=== PATIENT | male | born 1975 | race Hispanic/Latino ===

== ENCOUNTER 2019-11-11 14:55 | Emergency (ER) | payer MEDICARE ==
[2019-11-11 15:30] VITALS: BP 127/78
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
== END 2019-11-11 18:10 | disposition home or self-care (01) ==
LOC: ED 14:55
DX: S82.891A Other fracture of right lower leg, initial encounter for closed fracture (principal); X58.XXXA Exposure to other specified factors, initial encounter; Y93.9 Activity, unspecified; Y92.89 Other specified places as the place of occurrence of the external cause; Y99.8 Other external cause status